=== PATIENT | male | born 1980 | race Caucasian/White ===

== ENCOUNTER 2016-09-08 03:23 | Emergency (ER) | payer BC ==
[2016-09-08] MEDS ORDERED: ZOFRAN INJ 4 MG VIAL ONE (03:25)
[2016-09-08] MEDS ORDERED: NS 1000 ML 1,000 ML ONE (03:25)
[2016-09-08] MEDS ORDERED: TORADOL 30 MG VIAL ONE (03:26)
[2016-09-08] MEDS ORDERED: NS 1000 ML 1,000 ML IV ONE (03:30)
[2016-09-08] MEDS ORDERED: MORPHINE SULFATE INJ 4 MG IVP ONE (03:30)
[2016-09-08] MEDS ORDERED: ZOFRAN INJ 4 MG VIAL IVP ONE (03:30)
[2016-09-08] MEDS ORDERED: MORPHINE SULFATE INJ 4 MG ONE (03:31)
[2016-09-08] MEDS ORDERED: PEPCID 20 MG IV PREMIX* 20 MG/50 ML BAG IV ONE ×2 (03:32→03:40)
[2016-09-08 03:43] VITALS: BMI 24.2
[2016-09-08] MEDS ORDERED: DILAUDID INJ IVP PRN (03:47)
[2016-09-08] MEDS ORDERED: DILAUDID INJ ONE (03:47)
[2016-09-08] MEDS ORDERED: DILAUDID INJ IVP ONE (03:48)
--- NOTE | 2016-09-08 03:49 | DR.ABDMALE ---
HPI - Time seen Time seen: 03:40 - HPI comment HPI Comment: HISTORY KIDNEY STONE. NO MED TAKING BEFORE COMIND. DENIES FEVER. - Complaint Chief Complaint Doctors Comments: LOWER ABDOMINAL PAIN TIMES ONE HR WITH NAUSEA AND VOMITING. - Reviewed Nurses Notes Review: Yes - Mode of arrival Mode of Arrival: Ambulatory - Timing Came on: Suddenly - Duration Duration: Constant Duration: Hours - Location Location: RLQ, LLQ, Suprapubic - Severity Severity: Moderate - Quality Quality: Sharp - Context Onset: Unknown History of: Urolithiasis - Modifying factors Worsening Factors: Nothing Improving Factors: Nothing - Associated signs and symptoms Associated Signs and Symptoms: Nausea, Vomiting, Hematemesis PMH - PMH Past Medical History: Kidney Stones Past Surgical History: No - Family History Family Medical History: Diabetes Mellitus, Hypertension - Social History Do you use any recreational Drugs:: No ROS - Review of Systems Constitutional: No Symptoms Reported Eyes: No Symptoms Reported ENTM: No Symptoms Reported Respiratoy: No Symptoms Reported Cardiovascular: No Symptoms Reported Gastrointestinal/Abdominal: Abdominal Pain (LOWER.), Nausea, Vomiting Neurological: No Symptoms Reported Musculoskeletal: No Symptoms Reported Integumentary: No Symptoms Reported Hematologic/Lymphatic: No Symptoms Reported Endocrine: No Symptoms Reported All Other Systems: Reviewed and Negative PE - Vital Signs Vital Signs: Temp Pulse Resp BP BP Pulse Ox 09/08/16 04:01 135/85 09/08/16 03:31 98.2 F 73 20 100 05/29/16 19:04 125/83 - General Limitations: No Limitations General Appearance: Alert - Head Head Exam: Normal Inspection - Eyes Eye exam: Normal Appearance - ENT ENT Exam: Normal External Ear Exam - Neck Neck Exam: Trachea Midline - Chest Chest Inspection: Symmetric Chest Wall Rise - Respiratory Respiratory Exam: Normal Lung Sounds Bilat Respiratory Exam: Bilateral Clear to Auscultation - Cardiovascular Cardiovascular Exam: Regular Rate - Abdominal Exam Abdominal Exam: Normal Bowel Sounds, Soft, Tenderness Abdominal Tenderness: RLQ, LLQ, Suprapubic - Rectal Rectal Exam: Deferred - Back Back Exam: Normal Inspection - Extremeties Extremities Exam: Normal Inspection - Exam: Male: Deferred - Neurologic Neurological Exam: Alert, Oriented X3 - Psychiatric Psychiatric Exam: Anxious - Skin Skin Exam: Normal Color MDM - Additional Information Obtained From Additional information provided by: Family - Differential Diagnosis Differential Diagnosis: Urinary tract infection, Urolithiasis Course - Treatment Treatment: SEE ORDERS - Education/Counseling Education/Counseling: Patient, Family, Education Educated On: Treatment, Diagnosis, Needs for Follow Up ROR - Labs Reviewed Laboratory Results Reviewed?: Yes Result Diagrams: 09/08/16 03:55 09/08/16 03:55 Laboratory: WBC 10.6 X10^3/uL (3.6-10.0) H 09/08/16 03:55 RBC 4.90 X10^6/uL (4.7-6.0) 09/08/16 03:55 Hgb 14.6 g/dL (13.5-18.0) 09/08/16 03:55 Hct 42.6 % (42.0-54.0) 09/08/16 03:55 MCV 87.0 fL (80.0-100.0) 09/08/16 03:55 MCH 29.7 pg (27.0-34.0) 09/08/16 03:55 MCHC 34.1 g/dL (33.0-35.0) 09/08/16 03:55 RDW 13.3 % (11.6-16.5) 09/08/16 03:55 Plt Count 190 X10^3/uL (150.0-450.0) 09/08/16 03:55 MPV 9.8 fL (7.4-11.0) 09/08/16 03:55 Neut % 52.4 % (42.0-75.0) 09/08/16 03:55 Lymph % 35.2 % (21.0-51.0) 09/08/16 03:55 [place] % 6.6 % (0.0-13.0) 09/08/16 03:55 Eos % 4.5 % (0.9-2.9) H 09/08/16 03:55 Baso % 1.3 % (0.2-1.0) H 09/08/16 03:55 Neut # 5.6 x10^3/uL (2.2-4.8) H 09/08/16 03:55 Lymph # 3.7 X10^3/uL (1.3-2.9) H 09/08/16 03:55 [place] # 0.7 x10^3/uL (0.3-0.8) 09/08/16 03:55 Eos # 0.5 x10^3/uL (0.0-0.2) H 09/08/16 03:55 Baso # 0.1 X10^3/uL (0.0-0.1) 09/08/16 03:55 Absolute Nucleated RBC 0.1 /100WBC 09/08/16 03:55 Sodium 143 mmol/L (136-145) 09/08/16 03:55 Corrected Sodium 144 mmol/L (136-145) 09/08/16 03:55 Potassium 3.5 mmol/L (3.5-5.1) 09/08/16 03:55 Chloride 106 mmol/L (98-107) 09/08/16 03:55 Carbon Dioxide 22.2 mmol/L (21-32) 09/08/16 03:55 BUN 17 mg/dL (7-18) 09/08/16 03:55 Creatinine 1.04 mg/dL (0.70-1.30) 09/08/16 03:55 Est GFR (MDRD) Af Amer > 60 (>60) 09/08/16 03:55 Est GFR (MDRD) Non-Af > 60 (>60) 09/08/16 03:55 Glucose 133 mg/dL (65-99) H 09/08/16 03:55 Calcium 9.2 mg/dL (8.5-10.1) 09/08/16 03:55 Corrected Calcium TNP 09/08/16 03:55 Total Bilirubin 0.50 mg/dL (0.2-1.0) 09/08/16 03:55 AST 17 Units/L (15-37) 09/08/16 03:55 ALT 23 Units/L (12-78) 09/08/16 03:55 Alkaline Phosphatase 89 Units/L (46-116) 09/08/16 03:55 Total Protein 7.4 g/dL (6.4-8.2) 09/08/16 03:55 Albumin 4.1 g/dL (3.4-5.0) 09/08/16 03:55 Globulin 3.3 g/dL (2.5-4.5) 09/08/16 03:55 Albumin/Globulin Ratio 1.2 Ratio (1.1-2.1) 09/08/16 03:55 Specimen Type Clean catch urine 09/08/16 03:50 Urine Color Yellow (YELLOW) 09/08/16 03:50 Urine Appearance Cloudy (CLEAR) 09/08/16 03:50 Urine pH 6.0 (5.0 - 8.0) 09/08/16 03:50 Ur Specific [place] 1.025 (1.000-1.030) 09/08/16 03:50 Urine Protein 2+ (NEGATIVE) 09/08/16 03:50 Urine Glucose (UA) Negative (NEGATIVE) 09/08/16 03:50 Urine Ketones Negative (NEGATIVE) 09/08/16 03:50 Urine Occult Blood 5+ (NEGATIVE) 09/08/16 03:50 Urine Nitrite Negative (NEGATIVE) 09/08/16 03:50 Urine Bilirubin Negative (NEGATIVE) 09/08/16 03:50 Urine Urobilinogen Normal (NORMAL) 09/08/16 03:50 Ur Leukocyte Esterase 1+ (NEGATIVE) 09/08/16 03:50 Urine RBC Tntc /HPF (NEGATIVE) 09/08/16 03:50 Urine WBC 0-3 /HPF (NEGATIVE) 09/08/16 03:50 Ur Squamous Epith Cells Rare /HPF (NEGATIVE) 09/08/16 03:50 Urine Bacteria 1+ /HPF (NEGATIVE) 09/08/16 03:50 Ur Culture Indicated? Yes/culture set up 09/08/16 03:50 - XRAY XRAY Interpreted by: Radiologist XRAY Findings: REPORT DISCUSS WITH PATIENT. - Diagnosis Discharge Problem: Kidney stone on right side UTI (urinary tract infection) Qualifiers: Urinary tract infection type: site unspecified Hematuria presence: with hematuria Qualified Code(s): N39.0 - Urinary tract infection, site not specified - Discharge Plan Condition: Stable Prescriptions: Ciprofloxacin HCl [CIPRO 500 MG TAB *] 500 mg PO Q12H #20 tab Hydrocodone-Acet 7.5 mg/325 mg [Ambia 7.5/325 mg Tab] 1 tab PO Q6H PRN #15 tab PRN Reason: Pain Ondansetron HCl [Zofran Tab 4 mg] 4 mg PO Q8H PRN #15 tab PRN Reason: Nausea/Vomiting Tamsulosin HCl [Flomax] 0.4 mg PO DAILY #20 cap - Follow ups/Referrals Follow ups/Referrals: ALEJANDRO HART [Primary Care Provider] - 1 day - Instructions Instructions: Kidney Stones, [id number], Urinary Tract Infection, Easy-to- Read Additional Instructions: RETURN TO ED IF WORSE. SEE YOUR UROLOGIST THIS WEEK.
[2016-09-08 04:04] LABS: BILIRUBIN,URINE NEGATIVE (NEGATIVE); BLOOD/HEMOGLOBIN,URINE 5+ (NEGATIVE); GLUCOSE, URINE NEGATIVE (NEGATIVE); KETONES,URINE NEGATIVE (NEGATIVE); LEUKOCYTE ESTERASE ,URINE 1+ (NEGATIVE); NITRITES,URINE NEGATIVE (NEGATIVE); PROTEIN,URINE 2+ (NEGATIVE); UROBILINOGEN,URINE NORMAL (NORMAL)
[2016-09-08 04:04] LABS: BASOPHILS # (AUTO) 0.1 X10^3/uL (0.0-0.1); BASOPHILS % (AUTO) 1.3 % (0.2-1.0); EOSINOPHILS # (AUTO) 0.5 x10^3/uL (0.0-0.2); EOSINOPHILS % (AUTO) 4.5 % (0.9-2.9); HEMATOCRIT 42.6 % (42.0-54.0); HEMOGLOBIN 14.6 g/dL (13.5-18.0); LYMPHOCYTES # (AUTO) 3.7 X10^3/uL (1.3-2.9); LYMPHOCYTES % (AUTO) 35.2 % (21.0-51.0); MEAN CORPUSCULAR HEMOGLOBIN 29.7 pg (27.0-34.0); MEAN CORPUSCULAR HGB CONC 34.1 g/dL (33.0-35.0); MEAN PLATELET VOLUME 9.8 fL (7.4-11.0); MONOCYTES # (AUTO) 0.7 x10^3/uL (0.3-0.8); MONOCYTES % (AUTO) 6.6 % (0.0-13.0); NEUTROPHILS # (AUTO) 5.6 x10^3/uL (2.2-4.8); NEUTROPHILS % (AUTO) 52.4 % (42.0-75.0); PLATELET COUNT 190 X10^3/uL (150.0-450.0); RED CELL DISTRIBUTION WIDTH 13.3 % (11.6-16.5); WHITE BLOOD COUNT 10.6 X10^3/uL (3.6-10.0)
[2016-09-08 04:10] LABS: APPEARANCE,URINE CLOUDY (CLEAR); BACTERIA,URINE 1+ /HPF (NEGATIVE); COLOR,URINE YELLOW (YELLOW); RBC,URINE TNTC /HPF (NEGATIVE); SQUAMOUS EPITHELIAL CELL,UR RARE /HPF (NEGATIVE)
[2016-09-08 04:14] VITALS: BP 135/85
[2016-09-08 04:14] LABS: ALANINE AMINOTRANSFERASE 23 Units/L (12-78); ALBUMIN 4.1 g/dL (3.4-5.0); ALKALINE PHOSPHATASE 89 Units/L (46-116); ASPARTATE AMINO TRANSFERASE 17 Units/L (15-37); BLOOD UREA NITROGEN 17 mg/dL (7-18); CALCIUM 9.2 mg/dL (8.5-10.1); CARBON DIOXIDE 22.2 mmol/L (21-32); CHLORIDE 106 mmol/L (98-107); COR NA(FOR HYPERGLY) 144 mmol/L (136-145); CREATININE 1.04 mg/dL (0.70-1.30); GLUCOSE 133 mg/dL (65-99); SODIUM 143 mmol/L (136-145); TOTAL PROTEIN 7.4 g/dL (6.4-8.2); eGFR BLACK RACES > 60 (>60); eGFR NON BLACK RACES > 60 (>60)
--- NOTE | 2016-09-08 04:29 | CT ---
CT abdomen and pelvis without contrast Indication: Lower abdominal pain, nausea and vomiting. Comparison: None Technique: CT images of the abdomen and pelvis were obtained without contrast. Automatic exposure co ntrol was utilized. Findings: The lung bases are clear. No aggressive osseous lesion identified. Within the limitations of a noncontrast study, the liver, gallbladder, spleen, stomach, duodenum, pa ncreas, and adrenals are unremarkable. There is mild right-sided hydroureteronephrosis, with a 3 mm stone at the ureterovesicular junction. Punctate bilateral renal collecting system stones are noted. There is no left-sided hydronephrosis or left ureteral stone. No significant bowel thickening or dilatation of the lower GI tract is identified. The appendix appe ars normal. The prostate and rectum are unremarkable. No free fluid or adenopathy identified. Impression: Mild right hydroureteronephrosis secondary to a 3 mm UVJ stone. Punctate bilateral nephrolithiasis Reported By:
[2016-09-08] MEDS ORDERED: FLOMAX PO ONE (04:30)
[2016-09-08] MEDS ORDERED: CIPRO TAB 500 MG PO ONE ×2 (04:36→04:40)
== END 2016-09-08 05:07 | disposition home or self-care (01) ==
LOC: ER 03:23
DX: N20.0 Calculus of kidney (principal); N39.0 Urinary tract infection, site not specified
CPT/HCPCS: 36415; 74176; 80053; 81001; 85025; 87086; 96365; 96374; 96375; 99283; A4222; S0028; J1170; J1885; J2270; J2405